=== PATIENT | male | born 1970 | race Two or more races ===

== ENCOUNTER 2021-12-01 17:47 | Emergency (ER) | payer OTHER ==
[~2021-12-01] VITALS: Ht 167.6 cm; Wt 97.5 kg
[2021-12-01] MEDS ORDERED: IRBESARTAN150 MG (18:48)
== END 2021-12-01 22:05 | disposition home or self-care (01) ==
LOC: ER 17:47
DX: R10.84 Generalized abdominal pain (principal); R16.0 Hepatomegaly, not elsewhere classified; I10 Essential (primary) hypertension; E03.9 Hypothyroidism, unspecified